=== PATIENT | male | born 1930 | race Caucasian/White ===

== ENCOUNTER 2016-10-31 14:51 | Inpatient (IN) | payer OTHER, MEDICAID ==
[~2016-10-31] VITALS: Ht 175.3 cm; Wt 64.9 kg
--- NOTE | 2016-10-31 15:00 | NUR ---
Address of unknown [facility] sending facility per transport EMT: [id number] [place], [place]
[2016-10-31 15:47] LABS: CALCIUM 9.1 mg/dL (8.5-10.1); POTASSIUM 4.5 mmol/L (3.5-5.1)
[2016-10-31 15:48] LABS: CREATININE 1.6 mg/dL (0.6-1.3)
[2016-10-31 15:51] LABS: BASOPHILS % (AUTO) 0.6 % (0.0-2.0); EOSINOPHILS # (AUTO) 0.2 K/uL (0.0-0.7); EOSINOPHILS % (AUTO) 2.7 % (0.0-7.0); HEMATOCRIT 34.6 % (36.7-47.1); HEMOGLOBIN 11.5 g/dL (12.5-16.3); LYMPHOCYTES # (AUTO) 1.5 K/uL (20.0-40.0); LYMPHOCYTES % (AUTO) 17.7 % (20.5-51.5); MEAN CORPUSCULAR HEMOGLOBIN 29.7 uug (23.8-33.4); MEAN CORPUSCULAR HGB CONC 33 g/dL (32.5-36.3); MEAN CORPUSCULAR VOLUME 89.3 fL (73.0-96.2); MONOCYTES # (AUTO) 0.6 K/uL (2.0-10.0); NEUTROPHILS # (AUTO) 5.9 K/uL (1.8-8.9); PLATELET COUNT (AUTO) 472 K/uL (152-348); RED BLOOD CELL COUNT(AUTO) 3.87 MIL/uL (4.06-5.63); WHITE BLOOD COUNT (AUTO) 8.3 K/uL (3.6-10.2)
[2016-10-31 15:53] LABS: ALBUMIN 3.3 g/dL (3.4-5.0); BILIRUBIN,TOTAL 0.7 mg/dL (0.2-1.0); TOTAL PROTEIN, SERUM 7.9 g/dL (6.4-8.2)
[2016-10-31] MEDS ORDERED: CARV6.252 PO (15:55)
[2016-10-31] MEDS ORDERED: SPIR25TA4 PO (15:55)
[2016-10-31] MEDS ORDERED: LORA2TAB PO (15:55)
[2016-10-31] MEDS ORDERED: ASPI81TA31 PO (15:55)
[2016-10-31] MEDS ORDERED: QUET25TA PO (15:55)
[2016-10-31] MEDS ORDERED: DIVA125C PO (15:55)
[2016-10-31] MEDS ORDERED: CLOP75TA2 PO (15:55)
[2016-10-31] MEDS ORDERED: DOCU-170 PO (15:55)
[2016-10-31] MEDS ORDERED: QUET100T PO (15:55)
--- NOTE | 2016-10-31 17:00 | NUR ---
Pt remains alert and confused, NAD noted at this time.
[2016-10-31] MEDS ORDERED: FUROSEMIDE 20 MG/2 ML VIAL IV ONE (17:15)
--- NOTE | 2016-10-31 17:15 | NUR ---
Dr Eldridge spoke with Dr Chaudhary via telephone, pt to be admitted to tele, bed assignment pending.
[2016-10-31] MEDS ORDERED: FUROSEMIDE 20 MG/2 ML VIAL ONE (17:30)
--- NOTE | 2016-10-31 17:47 | NUR ---
Obtained telephone number on sending facility via internet search of address ( [facility] [phone] ), spoke with Keiko who stated he does not have information about the pt but to contact [facility] at [phone] for further information.
--- NOTE | 2016-10-31 17:54 | NUR ---
Spoke with [facility] ) who identified herself as the wide area network administrator from sending facility. Per [facility] pt was referred to ER by Dr Linden Meza for eval due to poor oral intake x 3 days.
[2016-10-31] MEDS ORDERED: HYDROCODONE/APAP 5-325MG TABLET PO PRN (18:00)
[2016-10-31] MEDS ORDERED: ACETAMINOPHEN 325 MG TABLET PO PRN (18:00)
[2016-10-31] MEDS ORDERED: MAGNESIUM HYDROXIDE 30 ML LIQUID UDC PO PRN (18:00)
[2016-10-31] MEDS ORDERED: ONDANSETRON 4 MG/2 ML VIAL IV PRN (18:00)
[2016-10-31] MEDS ORDERED: Z GUARD REMEDY PASTE 57 GM TUBE TOP PRN (18:00)
[2016-10-31 18:26] LABS: *BILIRUBIN,URIN NEGATIVE (NEGATIVE); *BLOOD, URINE Trace-lysed (NEGATIVE); *CLARITY,URINE SLIGHTLY CLOUDY (CLEAR); *COLOR,URINE YELLOW (YELLOW); *KETONES,URINE NEGATIVE (NEGATIVE); *PROTEIN,URINE 1+ (NEGATIVE); *UROBILINOGEN,URINE 0.2 E.U./dl (NORMAL); LEUKOCYTE ESTERASE ,URINE 1+ (NEGATIVE); UGLUCOSE NEGATIVE (NEGATIVE)
[2016-10-31 18:34] LABS: NITRITE, URINE POSITIVE (NEGATIVE)
[2016-10-31 18:36] LABS: BACTERIA,URINE MODERATE /HPF (NONE SEEN); URINE AMORPHOUS PHOSPHATES FEW /HPF; WBC,URINE 50-80 /HPF (0-3)
--- NOTE | 2016-10-31 18:58 | NUR ---
Pt home medications placed and sealed in pt's own medications envelope and given to pharmacy (envelope # [id number]).
--- NOTE | 2016-10-31 19:02 | NUR ---
Report given to corporate wellness coordinator, pend tele bed assignement and transfer post change of shift.
--- NOTE | 2016-10-31 20:17 | NUR ---
Pt. admitted to TELEMETRY ROOM 206, under care of Dr. MARISOL SNYDER, Belongs List completed, Pt is awake, alert, oriented x 2, no resp distress noted upon transfer assessment... pt transferred via gurney...
--- NOTE | 2016-10-31 20:20 | NUR ---
PT WAS BROUGHT IN TO FLOOR VIA GURNEY. ADMITTED TO TELE UNDER CARE MARISOL KYLE, DX: ALTERED MENTAL STATUS. INITIATE ADMISSION ASSESSMENTS. BELONGING LISTS REVIEWED.
[2016-10-31 20:25] VITALS: BP 157/65
--- NOTE | 2016-10-31 20:25 | NUR ---
BLOOD TINGED URINE OBSERVED ON PT'S DIAPER, WILL CONTINUE TO MONITOR. PICTURES TAKEN ON SKIN ISSUES, PLACED ON CHART.
[2016-10-31] MEDS ORDERED: ENOXAPARIN SODIUM 40 MG/0.4 ML DISP.SYRIN SQ SCH (21:00)
[2016-10-31] MEDS: LORAZEPAM 1 MG TABLET PO PRN (21:35)
[2016-10-31] MEDS: TEMAZEPAM 7.5 MG CAPSULE PO PRN (21:35)
[2016-11-01] VITALS: BP 162/72
[2016-11-01 04:00] VITALS: BP 126/71
[2016-11-01] MEDS: PANTOPRAZOLE SODIUM 40 MG TABLET.DR PO SCH (06:12)
--- NOTE | 2016-11-01 06:24 | NUR ---
PT IN BED, ASLEEP, AROUSABLE TO NAME AND TOUCH. IN NO ACUTE SIGNS OF DISTRESS. NO FURTHER EPISODES OF HEMATURIA. SAFETY MAINTAINED. BED ALARM ON.
--- NOTE | 2016-11-01 08:00 | NUR ---
asleep on rounds but easily aroused for breakfast- assisted with meals- confused tendency to get easily agitated, denies of pain at this time, states"after eating, i want to go to sleep", safety measures maintained, bed alarm on
[2016-11-01] MEDS: SPIRONOLACTONE 25 MG TABLET PO SCH (08:57)
[2016-11-01] MEDS: ASPIRIN 81 MG TAB.CHEW PO SCH (08:57)
[2016-11-01] MEDS: DOCUSATE SODIUM 100 MG CAPSULE PO SCH (08:57)
[2016-11-01] MEDS: DIVALPROEX SPRINKLE 125 MG CAP.SPRINK PO SCH ×2 (08:57→16:57)
[2016-11-01] MEDS: CARVEDILOL 6.25 MG TABLET PO SCH ×2 (08:58→16:56)
[2016-11-01] MEDS: QUETIAPINE FUMARATE 100 MG TABLET PO SCH ×2 (08:58→16:57)
[2016-11-01] MEDS: CLOPIDOGREL 75 MG TABLET PO SCH (08:58)
[2016-11-01] MEDS: QUETIAPINE FUMARATE 25 MG TABLET PO SCH ×2 (08:58→16:57)
[2016-11-01] MEDS ORDERED: FUROSEMIDE 40 MG/4 ML VIAL IV SCH (09:00)
--- NOTE | 2016-11-01 09:00 | NUR ---
wanted to go to BR- placed on commode- pt very unsteady- no BM and urinated per urinal with assist
[2016-11-01 09:22] LABS: BILIRUBIN,TOTAL 0.6 mg/dL (0.2-1.0); CALCIUM 9.1 mg/dL (8.5-10.1); MAGNESIUM 2.6 mg/dL (1.8-2.4); PHOSPHOROUS 4.2 mg/dL (2.5-4.9); POTASSIUM 4.2 mmol/L (3.5-5.1); TOTAL PROTEIN, SERUM 7.4 g/dL (6.4-8.2)
[2016-11-01 09:23] LABS: CREATININE 1.5 mg/dL (0.6-1.3)
[2016-11-01 09:44] LABS: BASOPHILS % (AUTO) 0.4 % (0.0-2.0); EOSINOPHILS # (AUTO) 0.4 K/uL (0.0-0.7); EOSINOPHILS % (AUTO) 4.5 % (0.0-7.0); HEMATOCRIT 35.8 % (36.7-47.1); HEMOGLOBIN 11.9 g/dL (12.5-16.3); LYMPHOCYTES # (AUTO) 1.6 K/uL (20.0-40.0); LYMPHOCYTES % (AUTO) 18.2 % (20.5-51.5); MEAN CORPUSCULAR HEMOGLOBIN 29.6 uug (23.8-33.4); MEAN CORPUSCULAR HGB CONC 33 g/dL (32.5-36.3); MEAN CORPUSCULAR VOLUME 89.2 fL (73.0-96.2); MONOCYTES # (AUTO) 0.5 K/uL (2.0-10.0); MONOCYTES % (AUTO) 6.4 % (0.0-11.0); NEUTROPHILS % (AUTO) 70.5 % (38.5-71.5); PLATELET COUNT (AUTO) 503 K/uL (152-348); RED BLOOD CELL COUNT(AUTO) 4.01 MIL/uL (4.06-5.63); RED CELL DISTRIBUTION WIDTH 14.4 % (12.1-16.2); WHITE BLOOD COUNT (AUTO) 8.5 K/uL (3.6-10.2)
[2016-11-01 11:50] VITALS: BP 94/54
--- NOTE | 2016-11-01 12:36 | NUR ---
seen by Dr Tolliver with orders, tech here to take pt for CT head without contrast- pt refused and screamed "no"
[2016-11-01 12:45] LABS: THYROID STIMULATING HORMONE 5.039 mIU/mL (0.358-3.740)
--- NOTE | 2016-11-01 13:15 | NUR ---
2d recycling technician here to do 2D echo but pt refused
[2016-11-01] MEDS: CEFTRIAXONE 1 G in IV DEXTROSE 5% 50 ML IV SCH (14:32)
--- NOTE | 2016-11-01 16:00 | NUR ---
up in commode, voiding qs, sometimes incontinent, calm and cooperative at this time, no distress noted, oriented x2, bed alarm on
[2016-11-01 16:09] VITALS: BP 123/59
--- NOTE | 2016-11-01 16:24 | NUR ---
SPOKE WITH ENRIQUETA FROM [facility] [phone] STATES [facility] HAS NO FAMILY ONLY A CONSERVATOR NAMED ADOLFO BUNDY [phone] AND HE WILL BE AVAILABLE ON Thursday11/03/16
--- NOTE | 2016-11-01 17:16 | NUR ---
PHARMACY NOTE([facility]) Patient is 85 y/o M with PMHx of schizophrenia, seizure disorder, HTN brought in by ambulance from [facility]. Patient was sent in for increasing generalized weakness and altered mental status. Past medical history schizophrenia, seizure disorder, HTN Review of current medication: Aspirin 81mg po daily for circulation: PLT 472 Aldactone 25mg po daily for HTN: K 4.2 Tylenol 650mg po q6h prn mild pain/fever Coreg 6.25mg po bid for HTN: HR 53 and BP 94/54 Rocephin 1 gram IV every 24 hrs for UTI Plavix 75mg po daily for circulation Depakote 125mg po bid for SZ Colace 100mg po daily for constipation Beresford 5/325 1 po q4h prn moderate to severe pain Ativan 1mg po q4h prn severe agitation/anxiety: 1 dose given overnight. Nurse note-arousable to name and touch. MOM 30ml po hs prn constipation: no dose give scr 1.5 Mag 2.6 Zofran 4mg iv q6h prn n/v Protonix 40mg po daily for GI prophylaxis: short term Serouquel 125mg bid for schizophrenia Restoril 7.5mg po hs prn: one dose given. Nurse note-arousable to name and touch. short term use while in the hospital. Recommendation: Will ask parameter for Coreg and to discontinue MOM.
--- NOTE | 2016-11-01 17:46 | NUR ---
eating fairly well with minimal assistance, aspiration precaution observed, no coughing episode noted. No distress noted, safety measures maintained, bed alarm on
[2016-11-01 20:00] VITALS: BP 113/57
--- NOTE | 2016-11-01 20:00 | NUR ---
RECEIVED PATIENT AWAKE IN BED. ALERT TO SELF. VERY CONFUSED AND DISORIENTED. NEEDS FREQUENT REDIRECTION. VSS. PATIENT AGITATED. PULLED OUT IV HEPLOCK THAT WAS NOTED TO RIGHT AC. PATIENT GIVEN ATIVAN 1MG PO PRN. DENIES PAIN OR DISCOMFORT. NO FACIAL GRIMACE NOTED. BED ALARM ON. WILL CONTINUE TO MONITOR. ALL NEEDS ATTENDED.
[2016-11-01] MEDS: LORAZEPAM 1 MG TABLET PO PRN (20:11)
[2016-11-01] MEDS: TEMAZEPAM 7.5 MG CAPSULE PO PRN (21:34)
--- NOTE | 2016-11-01 21:35 | NUR ---
PATIENT STILL AWAKE IN BED. VERY RESTLESS. PATIENT GIVEN RESTORIL 7.5MG PO PRN FOR SLEEP. BED ALARM ON. WILL CONTINUE TO MONITOR.
--- NOTE | 2016-11-01 22:30 | NUR ---
PATIENT STILL AWAKE. RESTORIL INEFFECTIVE. PATIENT KEEP TRYING TO GET OOB. PROVIDED SAFE AND THERAPEUTIC ENVIRONMENT. BED ALARM ON. CALL LIGHT IN REACH. ALL NEEDS ATTENDED. WILL CONTINUE TO MONITOR.
--- NOTE | 2016-11-02 00:05 | NUR ---
PATIENT STILL AWAKE AND VERY ANXIOUS. EASILY AGITATED. MOOD VERY LABILE. PATIENT GIVEN ATIVAN 1MG PO PRN FOR AGITATION. ROOM CLOSE TO NURSE STATION FOR FREQUENT MONITORING AND SAFETY. VSS. BED ALARM ON. CALL LIGHT IN REACH. ALL NEEDS ATTENDED. WILL CONTINUE TO MONITOR.
[2016-11-02 04:50] VITALS: BP 154/84
[2016-11-02] MEDS: PANTOPRAZOLE SODIUM 40 MG TABLET.DR PO SCH (06:01)
--- NOTE | 2016-11-02 06:26 | NUR ---
PATIENT AWAKE IN ROOM. VERY CONFUSED AND DISORIENTED. NEEDS FREQUENT REDIRECTION. SLEPT AT INTERVALS. VSS. NO RESP. DISTRESS NOTED. CALL LIGHT IN REACH. ALL NEEDS ATTENDED. WILL CONTINUE TO MONITOR.
[2016-11-02 07:04] LABS: BASOPHILS % (AUTO) 0.1 % (0.0-2.0); EOSINOPHILS # (AUTO) 0.6 K/uL (0.0-0.7); EOSINOPHILS % (AUTO) 5.4 % (0.0-7.0); HEMATOCRIT 34.3 % (36.7-47.1); HEMOGLOBIN 11.7 g/dL (12.5-16.3); LYMPHOCYTES # (AUTO) 1.7 K/uL (20.0-40.0); LYMPHOCYTES % (AUTO) 16.1 % (20.5-51.5); MEAN CORPUSCULAR HEMOGLOBIN 30.1 uug (23.8-33.4); MEAN CORPUSCULAR HGB CONC 34 g/dL (32.5-36.3); MEAN CORPUSCULAR VOLUME 87.9 fL (73.0-96.2); MONOCYTES # (AUTO) 0.6 K/uL (2.0-10.0); MONOCYTES % (AUTO) 6.1 % (0.0-11.0); NEUTROPHILS # (AUTO) 7.5 K/uL (1.8-8.9); NEUTROPHILS % (AUTO) 72.3 % (38.5-71.5); PLATELET COUNT (AUTO) 492 K/uL (152-348); RED CELL DISTRIBUTION WIDTH 13.9 % (12.1-16.2); WHITE BLOOD COUNT (AUTO) 10.4 K/uL (3.6-10.2)
[2016-11-02 07:16] LABS: CALCIUM 8.9 mg/dL (8.5-10.1); POTASSIUM 4.4 mmol/L (3.5-5.1)
[2016-11-02 07:28] LABS: CREATININE 1.7 mg/dL (0.6-1.3)
[2016-11-02 08:00] VITALS: BP 138/74
--- NOTE | 2016-11-02 08:00 | NUR ---
awake alert but confused, oriented to self only, reoriented to place and time asked not to scream, easily agitated, trying to get out off bed, placed on a commode, voided but already incontinent, 1:1 sitter ordered for safety- moved to Rm 201 b per bed, for sitter, safety measures maintained, bed alarm on.
[2016-11-02] MEDS: DIVALPROEX SPRINKLE 125 MG CAP.SPRINK PO SCH ×2 (08:35→17:17)
[2016-11-02] MEDS: CLOPIDOGREL 75 MG TABLET PO SCH (08:35)
[2016-11-02] MEDS: DOCUSATE SODIUM 100 MG CAPSULE PO SCH (08:35)
[2016-11-02] MEDS: ASPIRIN 81 MG TAB.CHEW PO SCH (08:35)
[2016-11-02] MEDS: QUETIAPINE FUMARATE 25 MG TABLET PO SCH (08:36)
[2016-11-02] MEDS: QUETIAPINE FUMARATE 100 MG TABLET PO SCH ×2 (08:36→17:17)
[2016-11-02] MEDS: SPIRONOLACTONE 25 MG TABLET PO SCH (08:37)
[2016-11-02] MEDS: CARVEDILOL 6.25 MG TABLET PO SCH ×2 (08:39→17:15)
[2016-11-02 11:44] VITALS: BP 104/57
--- NOTE | 2016-11-02 12:00 | NUR ---
up in the commode and voided per urinal.
--- NOTE | 2016-11-02 13:00 | NUR ---
seen by PT-see notes
[2016-11-02] MEDS: CEFTRIAXONE 1 G in IV DEXTROSE 5% 50 ML IV SCH (13:29)
[2016-11-02 16:00] VITALS: BP 129/79
--- NOTE | 2016-11-02 18:45 | NUR ---
sent urine specimen- initial specimen collected in ER was discarded per clinical lab clerk
--- NOTE | 2016-11-02 18:53 | NUR ---
resting in bed, denies of pain, confused but cooperative at this time, all needs attended and met, sitter in the room, no distress noted
[2016-11-02 19:00] VITALS: BP 124/59
--- NOTE | 2016-11-02 19:30 | NUR ---
RECEIVED IN BED, RESTING, IN NO ACUTE SIGNS OF DISTRESS, PT STILL VERY CONFUSED. VERBALLY RESPONSIVE, FOLLOWS SIMPLE COMMAND. SAFETY OBSERVED.
[2016-11-02] MEDS: LORAZEPAM 1 MG TABLET PO PRN ×2 (20:45)
--- NOTE | 2016-11-02 20:58 | NUR ---
PT WAS GIVEN ATIVAN 1MG PO PRESCRIBED, PT WAS RESTLESS, TRYING TO GET OUT FROM BED, AND PULLED OUT HIS IV SITE ON LEFT WRIST. PT NEEDS CONSTANT REDIRECTION. WILL CONTINUE TO MONITOR. ON 1:1 SITTER FOR SAFETY.
[2016-11-03 05:22] VITALS: BP 156/84
--- NOTE | 2016-11-03 05:34 | NUR ---
PT WAS SLEEPING MOST SHIFT AFTER GIVEN ATIVAN LAST NIGHT. REMAINS ON 1:1 SITTER FOR SAFETY. PT REFUSED LAB WORK THIS AM.
[2016-11-03] MEDS: PANTOPRAZOLE SODIUM 40 MG TABLET.DR PO SCH (06:17)
[2016-11-03 08:00] VITALS: BP 142/73
[2016-11-03] MEDS: DIVALPROEX SPRINKLE 125 MG CAP.SPRINK PO SCH ×2 (08:28→17:00)
[2016-11-03] MEDS: ASPIRIN 81 MG TAB.CHEW PO SCH (08:28)
[2016-11-03] MEDS: SPIRONOLACTONE 25 MG TABLET PO SCH (08:28)
[2016-11-03] MEDS: DOCUSATE SODIUM 100 MG CAPSULE PO SCH (08:29)
[2016-11-03] MEDS: QUETIAPINE FUMARATE 100 MG TABLET PO SCH ×2 (08:29→17:01)
[2016-11-03] MEDS: CARVEDILOL 6.25 MG TABLET PO SCH ×2 (08:29→16:59)
[2016-11-03] MEDS: CLOPIDOGREL 75 MG TABLET PO SCH (08:29)
--- NOTE | 2016-11-03 08:30 | NUR ---
awake, alert, oriented to self only- reorientation done, denies of pain, meat slicer here to draw blood- agreed, sitter in the room, Dr Hansen here earlier with orders, in need of urine specimen- sitter informed, safety measures maintained
[2016-11-03 08:57] LABS: BASOPHILS % (AUTO) 0.1 % (0.0-2.0); EOSINOPHILS # (AUTO) 0.5 K/uL (0.0-0.7); EOSINOPHILS % (AUTO) 5.8 % (0.0-7.0); HEMATOCRIT 35.5 % (36.7-47.1); HEMOGLOBIN 11.7 g/dL (12.5-16.3); LYMPHOCYTES # (AUTO) 1.4 K/uL (20.0-40.0); LYMPHOCYTES % (AUTO) 14.7 % (20.5-51.5); MEAN CORPUSCULAR HEMOGLOBIN 29.6 uug (23.8-33.4); MEAN CORPUSCULAR HGB CONC 33 g/dL (32.5-36.3); MEAN CORPUSCULAR VOLUME 89.7 fL (73.0-96.2); MONOCYTES # (AUTO) 0.5 K/uL (2.0-10.0); MONOCYTES % (AUTO) 5.6 % (0.0-11.0); NEUTROPHILS % (AUTO) 73.8 % (38.5-71.5); PLATELET COUNT (AUTO) 459 K/uL (152-348); RED BLOOD CELL COUNT(AUTO) 3.95 MIL/uL (4.06-5.63); RED CELL DISTRIBUTION WIDTH 14.3 % (12.1-16.2); WHITE BLOOD COUNT (AUTO) 9.4 K/uL (3.6-10.2)
[2016-11-03 09:05] LABS: POTASSIUM 4.2 mmol/L (3.5-5.1)
[2016-11-03 09:12] LABS: CREATININE 1.5 mg/dL (0.6-1.3)
[2016-11-03 09:27] LABS: MAGNESIUM 2.2 mg/dL (1.8-2.4); PHOSPHOROUS 3.8 mg/dL (2.5-4.9)
--- NOTE | 2016-11-03 11:00 | NUR ---
refused to have iv restarted
[2016-11-03 11:39] VITALS: BP 101/50
--- NOTE | 2016-11-03 12:30 | NUR ---
seen by ST for swallow evaluation
[2016-11-03] MEDS: CEFTRIAXONE 1 G in IV DEXTROSE 5% 50 ML IV SCH (14:00)
--- NOTE | 2016-11-03 14:00 | NUR ---
crisis team here with pt- see notes
[2016-11-03 14:11] LABS: *BILIRUBIN,URIN NEGATIVE (NEGATIVE); *BLOOD, URINE 1+ (NEGATIVE); *CLARITY,URINE SLIGHTLY CLOUDY (CLEAR); *COLOR,URINE YELLOW (YELLOW); *KETONES,URINE NEGATIVE (NEGATIVE); *PROTEIN,URINE NEGATIVE (NEGATIVE); *UROBILINOGEN,URINE 0.2 E.U./dl (NORMAL); LEUKOCYTE ESTERASE ,URINE 3+ (NEGATIVE); NITRITE, URINE NEGATIVE (NEGATIVE); UGLUCOSE NEGATIVE (NEGATIVE)
--- NOTE | 2016-11-03 14:22 | NUR ---
informed Dr Barry graves out and pt refused to have it restareted- Rocephin iv cannot be given
[2016-11-03 14:38] LABS: BACTERIA,URINE FEW /HPF (NONE SEEN); SQUAMOUS EPITHELIAL CELL,UR NONE SEEN /HPF (NONE SEEN); WBC,URINE 50-80 /HPF (0-3)
[2016-11-03 14:49] LABS: *CREATININE,URINE 62.4 mg/dL (30-125)
[2016-11-03 16:47] VITALS: BP 111/61
[2016-11-03 16:59] VITALS: BP 111/61
--- NOTE | 2016-11-03 18:00 | NUR ---
calm but gets easily agitated, no distress noted, sitter at bedside, to be converted as MHU overflow
--- NOTE | 2016-11-03 20:30 | NUR ---
GAVE REPORT TO MHU NURSE. PATIENT CALM AND COMFORTABLE, NO SIGNS OF AGGRESSION. TRANSPORTED TO MHU IN STABLE CONDITION.
[2016-11-03] MEDS ORDERED: SULF1TAB48 PO (20:48)
== END 2016-11-03 19:00 | DRG 682 ==
LOC: ER 14:53 → TELE 20:07 → MED 11-01 15:12
PROVIDERS: ADMIT Family Medicine; ATTEND Family Medicine
DX: N17.0 Acute kidney failure with tubular necrosis (principal); G92 Toxic encephalopathy; I50.33 Acute on chronic diastolic (congestive) heart failure; I13.0 Hypertensive heart and chronic kidney disease with heart failure and stage 1 through stage 4 chronic kidney disease, or unspecified chronic kidney disease; N39.0 Urinary tract infection, site not specified; J90 Pleural effusion, not elsewhere classified; F20.0 Paranoid schizophrenia; D64.9 Anemia, unspecified; F03.90 Unspecified dementia, unspecified severity, without behavioral disturbance, psychotic disturbance, mood disturbance, and anxiety; G40.909 Epilepsy, unspecified, not intractable, without status epilepticus; I25.10 Atherosclerotic heart disease of native coronary artery without angina pectoris; F29 Unspecified psychosis not due to a substance or known physiological condition; N18.3 Chronic kidney disease, stage 3 (moderate); Z79.82 Long term (current) use of aspirin; Z86.73 Personal history of transient ischemic attack (TIA), and cerebral infarction without residual deficits
CPT/HCPCS: 36415; 70030-TC; 71010; 76770; 80164; 83735; 84100; 84156; 84300; 84443; 85025; 85610; 87086; 93005; 93307; 97001; 97116; 97530; A4663; C1758; J0696; J1940; J7050; J7060

== ENCOUNTER 2016-11-03 19:42 | Inpatient (IN) | payer OTHER, MEDICAID ==
[~2016-11-03] VITALS: Ht 167.6 cm; Wt 68.0 kg
[~2016-11-03 19:42] MED LIST: ASPI81TA31 PO; CARV6.252 PO; CLOP75TA2 PO; DIVA125C PO; DOCU-170 PO; LORA2TAB PO; QUET100T PO; QUET25TA PO; SPIR25TA4 PO
[2016-11-03] MEDS ORDERED: ACETAMINOPHEN 325 MG TABLET PO PRN (20:30)
[2016-11-03] MEDS ORDERED: MAG HYDROX/AL HYDROX/SIMETH 30 ML LIQUID UDC PO PRN (20:30)
[2016-11-03] MEDS ORDERED: MAGNESIUM HYDROXIDE 30 ML LIQUID UDC PO PRN (20:30)
[2016-11-03] MEDS ORDERED: SULF1TAB48 PO (20:48)
--- NOTE | 2016-11-03 23:04 | NUR ---
PATIENT TRANSFERRED FROM [address] [place] [address] RECEIVED REPORT FROM BLAKE KURTZ WAS PLACED ON A HOLD FOR GD.PATIENT TRANSPORTED VIA WHEELCHAIR. PATIENT IS AMBULATORY WITH ASSISTED USES FWW, HOWEVER IS UNSTEADY. PATIENT ALERT/ORIENTED X2 WITH CONFUSION NOTED, PATIENT IS DISORGANIZED, DISORIENTED. PATIENT NOT ABLE TO GIVE ANY INFORMATION ON HEALTH, AND UNABLE TO ANSWER QUESTIONS DUE TO CONFUSION. HOWEVER WAS COOPERATIVE DURING BODY ASSESSMENT, SKIN NOTED LEFT ARM SCAB, RIGHT AND LEFT BRUISE TO BUTTOCKS, RIGHT KNEE ABRASION, LEFT AND RIGHT ABDOMINAL SCRATCHES, AND RIGHT ELBOW SCAB. NO AGGRESSIVE OR COMBATIVE BEHAVIOR NOTED, PATIENT IS UNPREDICTABLE. PATIENT IS EASILY AGITATED, EASILY IRRITABLE REQUIRES REDIRECTION AND PROMPTING. POOR INSIGHT, POOR IMPULSE CONTROL. NO CONTRABAND NOTED ON ARRIVAL. PATIENT CHANGED TO HOSPITAL GOWN. PATIENT GIVEN PATIENT'S HANDBOOK, AND ADVISEMENT AT BED SIDE. PATIENT ORIENTED TO UNIT/BEDROOM, REQUIRES FURTHER EDUCATION DUE TO CONFUSION. BED IN LOWEST POSITION, BED LOCKED, AND BED ALARM ON WHILE IN BED. Addendum: 11/03/16 at 2306 by TIANNA CALVIN RN [address]. BASILIO NOTIFIED OF ADMISSION, AND DR. SNYDER NOTIFIED OF ADMISSION AND RECON OF MEDICATION.
[2016-11-03 23:07] VITALS: BP 133/67
[2016-11-04] MEDS ORDERED: Z GUARD REMEDY PASTE 57 GM TUBE TOP PRN (01:00)
[2016-11-04 07:20] LABS: BASOPHILS % (AUTO) 0.1 % (0.0-2.0); EOSINOPHILS # (AUTO) 0.5 K/uL (0.0-0.7); EOSINOPHILS % (AUTO) 4.7 % (0.0-7.0); HEMATOCRIT 33.1 % (36.7-47.1); HEMOGLOBIN 11.3 g/dL (12.5-16.3); LYMPHOCYTES # (AUTO) 1.4 K/uL (20.0-40.0); MEAN CORPUSCULAR HEMOGLOBIN 30.3 uug (23.8-33.4); MEAN CORPUSCULAR HGB CONC 34 g/dL (32.5-36.3); MEAN CORPUSCULAR VOLUME 88.9 fL (73.0-96.2); MONOCYTES # (AUTO) 0.6 K/uL (2.0-10.0); MONOCYTES % (AUTO) 6.6 % (0.0-11.0); NEUTROPHILS # (AUTO) 7.3 K/uL (1.8-8.9); NEUTROPHILS % (AUTO) 74.6 % (38.5-71.5); PLATELET COUNT (AUTO) 463 K/uL (152-348); RED BLOOD CELL COUNT(AUTO) 3.72 MIL/uL (4.06-5.63); RED CELL DISTRIBUTION WIDTH 13.9 % (12.1-16.2); WHITE BLOOD COUNT (AUTO) 9.8 K/uL (3.6-10.2)
[2016-11-04 07:30] VITALS: BP 125/62
[2016-11-04 07:40] LABS: CALCIUM 9.1 mg/dL (8.5-10.1); POTASSIUM 4.7 mmol/L (3.5-5.1)
[2016-11-04 07:41] LABS: CREATININE 1.6 mg/dL (0.6-1.3)
[2016-11-04] MEDS: LORAZEPAM 0.5 MG TABLET PO PRN (08:14)
[2016-11-04] MEDS: CLOPIDOGREL 75 MG TABLET PO SCH (08:14)
[2016-11-04] MEDS: DOCUSATE SODIUM 100 MG CAPSULE PO SCH (08:14)
[2016-11-04] MEDS: SPIRONOLACTONE 25 MG TABLET PO SCH (08:14)
[2016-11-04] MEDS: ASPIRIN 81 MG TAB.CHEW PO SCH (08:15)
[2016-11-04] MEDS: CARVEDILOL 6.25 MG TABLET PO SCH ×2 (08:15→17:26)
[2016-11-04] MEDS: Z GUARD REMEDY PASTE 57 GM TUBE TOP SCH ×2 (08:17→21:40)
[2016-11-04] MEDS: FINASTERIDE 5 MG TABLET PO SCH (08:17)
[2016-11-04] MEDS ORDERED: DIVALPROEX SPRINKLE 125 MG CAP.SPRINK PO SCH (09:00)
[2016-11-04] MEDS ORDERED: SULFAMETH/TRIMETH 800/160 MG TABLET PO SCH (09:00)
--- NOTE | 2016-11-04 11:57 | NUR ---
WOUND CARE CONSULT: PT REFUSED SKIN ASSESSMENT AND BECAME AGITATED. WILL SEE PT PT CONDITION PERMITS. PHOTO DOCUMENTATION SHOWS BRUISING TO BUTTOCKS AND SOME DRY ABRASIONS AND SCRATCHES. DEFER TO .
[2016-11-04] MEDS: DIVALPROEX SPRINKLE 125 MG CAP.SPRINK PO SCH ×2 (12:36→20:32)
[2016-11-04] MEDS: QUETIAPINE FUMARATE 100 MG TABLET PO SCH ×2 (12:36→20:31)
[2016-11-04] MEDS: CEPHALEXIN MONOHYDRATE 250 MG CAPSULE PO SCH ×2 (13:53→21:40)
[2016-11-04] MEDS ORDERED: CEPHALEXIN MONOHYDRATE 125 MG/5 ML SUSPENSION 100ML NG SCH (14:00)
[2016-11-04 15:02] VITALS: BP 118/58
--- NOTE | 2016-11-04 16:06 | NUR ---
UR Note: JANET called Amanda ESTRADA with [facility] [phone] and left voicemail with current clinicals. Authorization#[id number]
--- NOTE | 2016-11-04 20:30 | NUR ---
Pt received sitting in francisco chair in hallway. Pt is confused and disoriented. Compliant with PO medications at bedtime. No acute distress noted. Safety measures provided.
[2016-11-04] MEDS: TAMSULOSIN HCL 0.4 MG CAP.SR.24H PO SCH (20:31)
[2016-11-04 20:48] VITALS: BP 115/59
[2016-11-05] MEDS: ZOLPIDEM 5 MG TABLET PO PRN (01:35)
--- NOTE | 2016-11-05 01:40 | NUR ---
Pt sitting in bed restless, given ambien as ordered. Pt compliant with medications with redirection. No acute distress noted. Safety measures maintained.
[2016-11-05] MEDS: CEPHALEXIN MONOHYDRATE 250 MG CAPSULE PO SCH ×3 (06:25→22:10)
[2016-11-05 07:30] VITALS: BP 122/62
[2016-11-05 08:00] LABS: BASOPHILS % (AUTO) 0.2 % (0.0-2.0)
[2016-11-05 08:05] LABS: MEAN CORPUSCULAR HEMOGLOBIN 30.2 uug (23.8-33.4)
[2016-11-05 08:06] LABS: EOSINOPHILS % (AUTO) 7.4 % (0.0-7.0); HEMATOCRIT 35.4 % (36.7-47.1); LYMPHOCYTES # (AUTO) 4.5 K/uL (20.0-40.0); LYMPHOCYTES % (AUTO) 34.6 % (20.5-51.5); MEAN CORPUSCULAR HGB CONC 34 g/dL (32.5-36.3); MEAN CORPUSCULAR VOLUME 88.9 fL (73.0-96.2); MONOCYTES # (AUTO) 1.1 K/uL (2.0-10.0); MONOCYTES % (AUTO) 8.5 % (0.0-11.0); NEUTROPHILS # (AUTO) 6.4 K/uL (1.8-8.9); NEUTROPHILS % (AUTO) 49.3 % (38.5-71.5); PLATELET COUNT (AUTO) 485 K/uL (152-348); RED BLOOD CELL COUNT(AUTO) 3.98 MIL/uL (4.06-5.63); RED CELL DISTRIBUTION WIDTH 14.4 % (12.1-16.2)
[2016-11-05] MEDS: FINASTERIDE 5 MG TABLET PO SCH (08:28)
[2016-11-05] MEDS: ASPIRIN 81 MG TAB.CHEW PO SCH (08:28)
[2016-11-05] MEDS: SPIRONOLACTONE 25 MG TABLET PO SCH (08:28)
[2016-11-05] MEDS: DIVALPROEX SPRINKLE 125 MG CAP.SPRINK PO SCH ×2 (08:28→22:11)
[2016-11-05] MEDS: QUETIAPINE FUMARATE 100 MG TABLET PO SCH ×2 (08:29→22:10)
[2016-11-05] MEDS: DOCUSATE SODIUM 100 MG CAPSULE PO SCH (08:30)
[2016-11-05] MEDS: CLOPIDOGREL 75 MG TABLET PO SCH (08:30)
[2016-11-05] MEDS: Z GUARD REMEDY PASTE 57 GM TUBE TOP SCH ×2 (08:33→22:11)
[2016-11-05] MEDS: CARVEDILOL 6.25 MG TABLET PO SCH ×2 (08:35→17:52)
[2016-11-05] MEDS: LORAZEPAM 0.5 MG TABLET PO PRN (10:19)
[2016-11-05 10:29] LABS: BAND % (MANUAL) 1 % (0-10); EOSINOPHILS % (MANUAL) 6 % (0-8); LYMPHOCYTES % (MANUAL) 21 % (20-40); MONOCYTES % (MANUAL) 7 % (2-10); NEUTROPHILS % (MANUAL) 65 % (42-75)
[2016-11-05 10:30] LABS: PLATELET ESTIMATE INCREASED
[2016-11-05 10:31] LABS: ALBUMIN 3.3 g/dL (3.4-5.0); BILIRUBIN,TOTAL 0.4 mg/dL (0.2-1.0); CALCIUM 9.2 mg/dL (8.5-10.1); MAGNESIUM 2.5 mg/dL (1.8-2.4); PHOSPHOROUS 3.9 mg/dL (2.5-4.9); POTASSIUM 4.7 mmol/L (3.5-5.1); TOTAL PROTEIN, SERUM 7.7 g/dL (6.4-8.2)
--- NOTE | 2016-11-05 11:06 | NUR ---
Initial discharge instructions: Patient was residing at a [facility] [[address] [place],[address]],however will not be able to return.Spoke with pt's conservator,Deuce Santana who stated the patient will need placement.Per Deuce he is open to patient being placed at a new [facility] or SNF (requested [facility]).SW will speak with pt,conservator,and MD regarding appropriate discharge plans.SW will form a safe and proper discharge.
[2016-11-05 11:23] LABS: BAND % (MANUAL) 1 % (0-10); EOSINOPHILS % (MANUAL) 6 % (0-8); LYMPHOCYTES % (MANUAL) 21 % (20-40); MONOCYTES % (MANUAL) 7 % (2-10); NEUTROPHILS % (MANUAL) 65 % (42-75)
[2016-11-05 11:24] LABS: PLATELET ESTIMATE INCREASED
[2016-11-05 14:05] LABS: *BILIRUBIN,URIN NEGATIVE (NEGATIVE); *BLOOD, URINE 3+ (NEGATIVE); *CLARITY,URINE SLIGHTLY CLOUDY (CLEAR); *COLOR,URINE YELLOW (YELLOW); *KETONES,URINE NEGATIVE (NEGATIVE); *PROTEIN,URINE TRACE (NEGATIVE); *UROBILINOGEN,URINE 0.2 E.U./dl (NORMAL); LEUKOCYTE ESTERASE ,URINE 1+ (NEGATIVE); NITRITE, URINE NEGATIVE (NEGATIVE); UGLUCOSE NEGATIVE (NEGATIVE)
[2016-11-05 14:15] LABS: RBC,URINE 50-80 /HPF (0-3)
[2016-11-05 14:16] LABS: BACTERIA,URINE FEW /HPF (NONE SEEN); SQUAMOUS EPITHELIAL CELL,UR FEW /HPF (NONE SEEN)
--- NOTE | 2016-11-05 14:51 | NUR ---
UR Note: JANET spoke with Amanda ESTRADA with [facility] [phone] and provided current clinicals. Patient has been authorized from 11/05/16-11/07/16, with review due 11/07/16. Authorization#[id number]
[2016-11-05 16:00] VITALS: BP 133/66
[2016-11-05 20:21] VITALS: BP 144/68
--- NOTE | 2016-11-05 21:00 | NUR ---
pt received in [facility] in [facility]. Observed to be disoriented and confused. Pt has sandy catheter, intact and patent. Pt is restless and anxious at times. No aggressive or combative behavior noted. Safety measures maintained.
[2016-11-05] MEDS: TAMSULOSIN HCL 0.4 MG CAP.SR.24H PO SCH (22:10)
[2016-11-06] MEDS: ZOLPIDEM 5 MG TABLET PO PRN (01:15)
--- NOTE | 2016-11-06 05:59 | NUR ---
PATIENT SLEPT INTERMITTENTLY THROUGH OUT THE NIGHT IN CHAIR IN HALLWAY. ASSISTED WITH SHOWER THIS MORNING BY STAFF. VANESSA OUTPUT 1100 YELLOW IN COLOR INTACT AND PATENT. NO ACUTE DISTRESS NOTED. SAFETY MEASURES PROVIDED.
[2016-11-06] MEDS: CEPHALEXIN MONOHYDRATE 250 MG CAPSULE PO SCH ×3 (06:00→21:12)
[2016-11-06 07:30] VITALS: BP 151/71
[2016-11-06 07:35] LABS: BASOPHILS # (AUTO) 0.1 K/uL (0.0-8.0); BASOPHILS % (AUTO) 0.7 % (0.0-2.0); EOSINOPHILS # (AUTO) 0.6 K/uL (0.0-0.7); HEMATOCRIT 34.3 % (40-50); HEMOGLOBIN 11.5 G/DL (14.0-18.0); LYMPHOCYTES # (AUTO) 1.5 K/uL (20.0-40.0); LYMPHOCYTES % (AUTO) 17.1 % (20.5-51.5); MEAN CORPUSCULAR HEMOGLOBIN 29.9 UUG (27.0-31.0); MEAN CORPUSCULAR HGB CONC 34 g/dL (32.0-37.0); MEAN CORPUSCULAR VOLUME 89.2 FL (82.0-92.0); MONOCYTES # (AUTO) 0.8 K/uL (2.0-10.0); MONOCYTES % (AUTO) 9.2 % (0.0-11.0); NEUTROPHILS # (AUTO) 5.9 K/uL (1.8-8.9); PLATELET COUNT (AUTO) 429 K/UL (150-450); RED BLOOD CELL COUNT(AUTO) 3.85 MIL/UL (4.7-6.1); RED CELL DISTRIBUTION WIDTH 14.4 % (11.5-14.5); WHITE BLOOD COUNT (AUTO) 8.9 K/UL (4.0-11.2)
[2016-11-06 07:56] LABS: ALBUMIN 3.2 g/dL (3.4-5.0); BILIRUBIN,TOTAL 0.4 mg/dL (0.2-1.0); CREATININE 1.7 mg/dL (0.6-1.3); MAGNESIUM 2.2 mg/dL (1.8-2.4); PHOSPHOROUS 3.6 mg/dL (2.5-4.9); POTASSIUM 4.9 mmol/L (3.5-5.1); TOTAL PROTEIN, SERUM 7.5 g/dL (6.4-8.2)
--- NOTE | 2016-11-06 11:12 | NUR ---
0730- 1030 Patient in bed sound asleep. Respiration even am]nd unlabored , no s/s acute distress. No facial grimacing noted.Breakfast meal and am medications held until patient is fully awake.Monitored q 30 min. 1045 Patient awake alert and ox2, ambulate in the hallway using FWW with physical therapist assistance.1100 Breakfast served and will give am medications after eating his meal.
[2016-11-06] MEDS: DIVALPROEX SPRINKLE 125 MG CAP.SPRINK PO SCH ×2 (11:23→20:49)
[2016-11-06] MEDS: QUETIAPINE FUMARATE 100 MG TABLET PO SCH ×2 (11:23→20:49)
[2016-11-06] MEDS: ASPIRIN 81 MG TAB.CHEW PO SCH (11:24)
[2016-11-06] MEDS: FINASTERIDE 5 MG TABLET PO SCH (11:25)
[2016-11-06] MEDS: SPIRONOLACTONE 25 MG TABLET PO SCH (11:25)
[2016-11-06] MEDS: CARVEDILOL 6.25 MG TABLET PO SCH ×2 (11:26→17:07)
[2016-11-06] MEDS: CLOPIDOGREL 75 MG TABLET PO SCH (11:26)
[2016-11-06] MEDS: DOCUSATE SODIUM 100 MG CAPSULE PO SCH (11:26)
[2016-11-06] MEDS: Z GUARD REMEDY PASTE 57 GM TUBE TOP SCH ×2 (11:27→20:50)
[2016-11-06 15:01] VITALS: BP 94/48
[2016-11-06 15:23] VITALS: BP 104/49
[2016-11-06] MEDS ORDERED: TEMAZEPAM 15 MG CAPSULE PO PRN (15:30)
[2016-11-06 16:11] VITALS: BP 113/53
[2016-11-06] MEDS: TAMSULOSIN HCL 0.4 MG CAP.SR.24H PO SCH (20:49)
[2016-11-06 20:59] VITALS: BP 134/61
--- NOTE | 2016-11-07 01:15 | NUR ---
Observed in bed restless and attempting to get out of bed. Pt given restoril 15mg prn as ordered. No acute distress noted. Safety measures maintained.
[2016-11-07] MEDS: CEPHALEXIN MONOHYDRATE 250 MG CAPSULE PO SCH (06:00)
--- NOTE | 2016-11-07 06:10 | NUR ---
Patient slept intermittently 5.00 hours. Cuevas catheter intact and patent, output 1400cc yellow in color. No acute distress noted. Safety measures maintained.
[2016-11-07 07:30] VITALS: BP 135/60
[2016-11-07] MEDS: CARVEDILOL 6.25 MG TABLET PO SCH ×2 (08:00→17:51)
[2016-11-07 08:03] LABS: BASOPHILS # (AUTO) 0.1 K/uL (0.0-8.0); BASOPHILS % (AUTO) 0.9 % (0.0-2.0); EOSINOPHILS # (AUTO) 0.5 K/uL (0.0-0.7); EOSINOPHILS % (AUTO) 7.1 % (0.0-7.0); HEMATOCRIT 34.1 % (40-50); HEMOGLOBIN 11.4 G/DL (14.0-18.0); LYMPHOCYTES # (AUTO) 1.6 K/uL (20.0-40.0); LYMPHOCYTES % (AUTO) 21.4 % (20.5-51.5); MEAN CORPUSCULAR HEMOGLOBIN 30.4 UUG (27.0-31.0); MEAN CORPUSCULAR HGB CONC 34 g/dL (32.0-37.0); MEAN CORPUSCULAR VOLUME 90.4 FL (82.0-92.0); MONOCYTES # (AUTO) 0.6 K/uL (2.0-10.0); MONOCYTES % (AUTO) 8.5 % (0.0-11.0); NEUTROPHILS # (AUTO) 4.8 K/uL (1.8-8.9); NEUTROPHILS % (AUTO) 62.1 % (38.5-71.5); PLATELET COUNT (AUTO) 389 K/UL (150-450); RED BLOOD CELL COUNT(AUTO) 3.77 MIL/UL (4.7-6.1); RED CELL DISTRIBUTION WIDTH 14.6 % (11.5-14.5); WHITE BLOOD COUNT (AUTO) 7.6 K/UL (4.0-11.2)
[2016-11-07 08:15] LABS: ALBUMIN 3.1 g/dL (3.4-5.0); BILIRUBIN,TOTAL 0.4 mg/dL (0.2-1.0); CALCIUM 8.9 mg/dL (8.5-10.1); POTASSIUM 4.8 mmol/L (3.5-5.1); TOTAL PROTEIN, SERUM 7.4 g/dL (6.4-8.2)
[2016-11-07 08:16] LABS: CREATININE 1.6 mg/dL (0.6-1.3)
[2016-11-07] MEDS: DOCUSATE SODIUM 100 MG CAPSULE PO SCH (11:23)
[2016-11-07] MEDS: DIVALPROEX SPRINKLE 125 MG CAP.SPRINK PO SCH (11:24)
[2016-11-07] MEDS: SPIRONOLACTONE 25 MG TABLET PO SCH (11:24)
[2016-11-07] MEDS: CLOPIDOGREL 75 MG TABLET PO SCH (11:24)
[2016-11-07] MEDS: ASPIRIN 81 MG TAB.CHEW PO SCH (11:25)
[2016-11-07] MEDS: FINASTERIDE 5 MG TABLET PO SCH (11:25)
[2016-11-07] MEDS: QUETIAPINE FUMARATE 100 MG TABLET PO SCH (11:25)
[2016-11-07] MEDS: Z GUARD REMEDY PASTE 57 GM TUBE TOP SCH (11:30)
[2016-11-07 15:08] VITALS: BP 92/49
--- NOTE | 2016-11-07 15:48 | NUR ---
DC Note: Patient will be discharged today to [facility] [[address] [place] [address]; ] via ambulance. Spoke with Ana Paula at [facility] [Registration #[id number]] who stated the patient would be picked up at 5:00 pm. Spoke with aMura at the facility who stated she would accept the patient today. Spoke with patients probate conservator, Deuce Santana [phone] who is aware and agreeable with discharge plans. Patient is aware and agreeable with discharge plans. Patient will follow-up with (Banking Assistant) and (Psychiatrist) at the facility. Addendum: 11/07/16 at 1549 by DEBORA GONZALES [facility] [phone]
[2016-11-07 17:51] VITALS: BP 92/49
--- NOTE | 2016-11-07 18:12 | NUR ---
1730 Called [facility], SNF regarding patient will be discharged to their facility, spoke to Martín Hartmann Rn and information regarding patient mental and medical diagnosis, medications to continue upon hospital discharge, regarding patient ADL's etc. - RN verbalized understanding. Still waiting for for the ambulance to brain picker the patient.
--- NOTE | 2016-11-07 19:08 | NUR ---
1900 Patient was picked up by [facility] ambulance stable condition
== END 2016-11-07 19:00 | DRG 885 ==
LOC: GPSOV 19:42 → UNDOADMIN 19:42 → GPS 19:42
PROVIDERS: ADMIT Psychiatry & Neurology Psychiatry; ATTEND Family Medicine
PROC: 0HBRXZZ Excision of Toe Nail, External Approach (ICD-10-PCS; principal; 2016-11-05)
DX: F20.0 Paranoid schizophrenia (principal); N17.9 Acute kidney failure, unspecified; I50.23 Acute on chronic systolic (congestive) heart failure; G92 Toxic encephalopathy; N39.0 Urinary tract infection, site not specified; N13.30 Unspecified hydronephrosis; I13.0 Hypertensive heart and chronic kidney disease with heart failure and stage 1 through stage 4 chronic kidney disease, or unspecified chronic kidney disease; J90 Pleural effusion, not elsewhere classified; J98.11 Atelectasis; S32.591A Other specified fracture of right pubis, initial encounter for closed fracture; G40.909 Epilepsy, unspecified, not intractable, without status epilepticus; Z73.6 Limitation of activities due to disability; D64.9 Anemia, unspecified; D75.89 Other specified diseases of blood and blood-forming organs; E78.5 Hyperlipidemia, unspecified; E83.41 Hypermagnesemia; E88.09 Other disorders of plasma-protein metabolism, not elsewhere classified; F29 Unspecified psychosis not due to a substance or known physiological condition; N28.1 Cyst of kidney, acquired; N32.0 Bladder-neck obstruction; Z79.02 Long term (current) use of antithrombotics/antiplatelets; I25.10 Atherosclerotic heart disease of native coronary artery without angina pectoris; M85.80 Other specified disorders of bone density and structure, unspecified site; B86 Scabies; X58.XXXA Exposure to other specified factors, initial encounter; Y93.9 Activity, unspecified; Y92.009 Unspecified place in unspecified non-institutional (private) residence as the place of occurrence of the external cause; Y99.9 Unspecified external cause status; N40.1 Benign prostatic hyperplasia with lower urinary tract symptoms; K44.9 Diaphragmatic hernia without obstruction or gangrene; I73.9 Peripheral vascular disease, unspecified; M20.12 Hallux valgus (acquired), left foot; M20.11 Hallux valgus (acquired), right foot; B35.1 Tinea unguium
CPT/HCPCS: 36415; 71010; 80164; 83735; 84100; 84153; 84443; 85025; 87086; 97001; 97116; 97530